=== PATIENT | female | born 1990 | race Caucasian/White ===

== ENCOUNTER → 2024-03-18 11:36 | Outpatient (CLI) | payer OTHER, SELFPAY ==
[2024-03-18 13:35] LABS: Urine Chlamydia NOT DETECTED; Urine N gonorrhoeae NOT DETECTED
== END ==
PROVIDERS: Visit Provider Obstetrics & Gynecology
DX: Z34.01 Encounter for supervision of normal first pregnancy, first trimester (principal); Z3A.09 9 weeks gestation of pregnancy
CPT/HCPCS: 87491; 87591

== ENCOUNTER → 2024-05-18 15:32 | Outpatient (CLI) | payer OTHER, SELFPAY ==
[2024-05-18 16:56] LABS: Add Manual Diff / Slide Review NO; Basophils Absolute Auto 0 /uL (0-100); Basophils Percent Auto 0.2 % (0-2); Eosinophils Absolute Auto 0 /uL (0-450); Eosinophils Percent Auto 0.4 % (2-4); Hematocrit 36.7 % (36-46); Hemoglobin 12.8 g/dL (12.0-16.0); Lymphocytes Absolute Auto 1400 /uL (1100-4500); Mean Corpuscular HGB Conc 34.9 % (30-36); Mean Corpuscular Hemoglobin 32.9 PG (26-34); Mean Corpuscular Volume 94.2 fL (80-100); Monocytes Absolute Auto 700 /uL (0-900); Monocytes Percent Auto 6.9 % (3-14); Neutrophils Absolute Auto 8400 /uL (1500-7000); Neutrophils Percent Auto 79.5 % (50-75); Platelet Count 235 X10^3/uL (150-400); Red Cell Distribution Width 13.5 % (11.6-14.8); White Blood Cell Count 10.5 X10^3/uL (4.5-11.0)
[2024-05-18 18:08] LABS: HIV 1 & 2 Ab/Ag 4th Gen Combo NEGATIVE (NEGATIVE); Hep C Virus Ab w/Reflex Quant NEGATIVE s/c (NEGATIVE); Hepatitis B Surface Antigen NEGATIVE s/c (NEGATIVE); Rubella Antibody IgG 5.2 IU/mL (>15)
[2024-05-19 08:10] LABS: RPR Screen Non Reactive (Non Reactive)
[2024-05-19 09:12] LABS: Varicella IgG Antibody 399 index (Immune >165)
== END ==
PROVIDERS: Obstetrics & Gynecology; Referring Provider Specialist; Visit Provider Specialist
DX: Z34.02 Encounter for supervision of normal first pregnancy, second trimester (principal); Z3A.18 18 weeks gestation of pregnancy
CPT/HCPCS: 36415; 80055; 82105; 82677; 84702; 86336; 86787; 86803; 86850; 86900; 86901; 87389

== ENCOUNTER → 2024-06-02 10:21 | Outpatient (CLI) | payer OTHER, SELFPAY ==
--- NOTE | 2024-06-02 10:22 | DI.US.S_ITS ---
PROCEDURE: US OB >= 14 WEEKS FETUS INDICATIONS: 20 Week Anatomy Scan OUTSIDE/PRIOR DATING DATA: Last menstrual period (LMP): 01/12/2024. LMP-based estimated date of delivery (FORREST): 10/18/2024. First dating scan (date and location): 03/18/2024. Estimated date of delivery (FORREST) from first dating scan: 10/20/2024. The calculations are made using the working FORREST of 10/18/2024. TECHNIQUE: Real-time scanning was performed of the fetus, with image documentation and biometric measurements. Endovaginal scanning: No COMPARISON: None. FINDINGS: General: A single living intrauterine gestation is present. Presentation: Breech. Placenta: Placental position is posterior , without previa. Amniotic fluid index: 13.0 cm, normal range is 5-24 cm. Single deepest vertical pocket is 3.8 cm. heart rate: 144 beats per minute. Maternal cervical canal: 3.6 cm long. Normal lower limit is 2.5 cm. biometrics: Biparietal diameter: 4.9 cm, 20 week 6 day Head circumference: 18.5 cm, 20 week 6 day Abdominal circumference: 15.6 cm, 20 week 5 day Femur length: 3.1 cm, 21 week 3 day Clinically estimated gestational age: 20 week 2 day Composite gestational age from present scan: 20 week 3 day Estimated weight and percentile: 342 g, 43 percentile Anatomic survey: Neuro: Ventricles are non-dilated at less than 10 mm. Cisterna magna is normal at 3-11 mm. Cerebellum is normal in size and morphology. Nuchal skin fold: Normal at less than 6 mm between 14-21 weeks gestational age. Face: Facial profile not well seen Spine: No evidence for spina bifida. Heart: 4-chambered heart is noted. Right ventricular outflow track not well seen. Left ventricular outflow track within normal limits.. Diaphragm: Diaphragm is intact. Stomach: Left-sided stomach is present. Kidneys: No hydronephrosis. Normal is less than 5 mm in 2nd trimester, less than 7 mm in 3rd trimester. Cord: 3-vessel cord has orthotopic insertion. Bladder: Normal in size. Extremities: All 4 extremities identified. IMPRESSION: Single live intrauterine consistent with a 20 week 2 day gestation. Facial profile and right ventricular outflow track not well seen. Attention on follow-up. Approved by: Antony Watson M.D. on 06/02/2024 at 18:18
== END ==
LOC: US 10:21
PROVIDERS: Referring Provider Obstetrics & Gynecology; Visit Provider Obstetrics & Gynecology
DX: Z34.82 Encounter for supervision of other normal pregnancy, second trimester (principal); Z3A.20 20 weeks gestation of pregnancy
CPT/HCPCS: 76811

== ENCOUNTER → 2024-06-10 15:26 | Outpatient (CLI) | payer OTHER, SELFPAY ==
--- NOTE | 2024-06-10 15:30 | DI.US.S_ITS ---
PROCEDURE: US OB FOLLOW UP INDICATIONS: Follow up anatomy scan OUTSIDE/PRIOR DATING DATA: Last menstrual period (LMP): 01/12/24. LMP-based estimated date of delivery (FORREST): 10/18/24. First dating scan (date and location): 03/18/24. Estimated date of delivery (FORREST) from first dating scan: 10/20/24. The calculations are made using the clinical FORREST of 10/18/24. TECHNIQUE: Real-time scanning was performed of the fetus, with image documentation. Endovaginal scanning: Not performed COMPARISON: None. FINDINGS: A single living intrauterine gestation is present. Presentation: Breech. Placenta: Placental position is posterior, without previa. Amniotic fluid index: 17.3 cm, normal range is 5-24 cm. Single deepest vertical pocket is 5.0 cm. heart rate: 143 beats per minute. Maternal cervical canal: Closed and 4.1 cm long. Normal lower limit is 2.5 cm. Clinically estimated gestational age: 21 weeks three days Images of the right cardiac ventricular outflow tract and profile are seen and appear normal. IMPRESSION: Completion of anatomic survey with visualization the facial profile and right cardiac ventricular outflow tract. Dictated by: Senait Medellin M.D. on 06/11/2024 at 18:24 Approved by: Senait Medellin M.D. on 06/11/2024 at 18:28
== END ==
PROVIDERS: Referring Provider Obstetrics & Gynecology; Visit Provider Obstetrics & Gynecology
DX: Z36.2 Encounter for other antenatal screening follow-up (principal); Z3A.21 21 weeks gestation of pregnancy
CPT/HCPCS: 76816

== ENCOUNTER → 2024-07-13 14:48 | Outpatient (CLI) | payer OTHER, SELFPAY ==
[2024-07-13 16:53] LABS: Hematocrit 35.7 % (36-46); Hemoglobin 12.6 g/dL (12.0-16.0)
[2024-07-13 17:46] LABS: GTT (PREG) 1 Hour PP 50gm Dose 192 mg/dL (76-139)
== END ==
PROVIDERS: Referring Provider Obstetrics & Gynecology; Visit Provider Obstetrics & Gynecology
DX: Z34.02 Encounter for supervision of normal first pregnancy, second trimester (principal); Z3A.26 26 weeks gestation of pregnancy
CPT/HCPCS: 36415; 82950; 85014; 85018

== ENCOUNTER → 2024-07-16 09:58 | Outpatient (CLI) | payer OTHER, SELFPAY ==
--- NOTE | 2024-07-16 16:58 | DIAB.GDA ---
Initial Gestational Diabetes Assessment Name: Zoey Person Date: 07/16/24 Time: 10-1030a Dx: abnormal glucose in Provider: Pablo FORREST: 10/18/24 Weeks: 26 Zoey presents for initial visit with spouse, Kevyn. Recent one hour glucose screen indicated a 192mg/dl elevated result. No OGTT. Started SMBG yesterday. Has been craving sweets lately. Denies personal or FH of DM. Diet Recall: 9a: 1-2 toast with almond butter and 1/2c berries 1p: leftovers or chipotle 3p: cottage cheese OR beef stick OR cheese 6p: salads OR half Ramen with 1/3 chx sandwich sn: nothing or ice cream or cookie 80oz water sometimes kombucha Anthropometrics: Ht: 65 Wt: 190# 07/13/24 at OB Prepregnancy wt: 180# Physical Activity: 30 min walk on less active days. Otherwise, no program. Self-Monitoring Blood Glucose: Checking FBG and 2 hour. All in goal, even with higher CHO intake. Will continue to monitor. Date Pre Post Pre Post Pre Post HS 07/15 88 88 86 98 07/16 80 Diabetes Medications: None Pertinent Labs: Screen 192mg/dl Nutrition Rx: Carbohydrates Meal: 45-60g lunch and dinner; 30g breakfast Snack: 15-30g Nutrition Diagnosis: Altered nutrition related lab value r/t abnormal glucose aeb Screen of 192mg/dl Nutrition and food related knowledge deficit r/t no previous MNT and new dx abnormal glucose aeb pt report Intervention: This participant was very receptive. Provided appropriate educational handouts. Discussed the following topics: insulin resistance in pathophysiology and impact of hyperglycemia on mom and baby Plate Method, meal timing, carb counting, pairing macronutrients and spreading out CHO for better BG management Blood glucose goals (FBG: <95 and 2 hour <120 mg/dL); importance of checking 4x per day (FBG and pc) Impact of macronutrients on blood glucose Recommended servings for carbohydrates at meals and snacks Goals: Continue blood sugar checks 4x per day Pair CHO and protein at meals. Follow-up: JOSE ROBERTO MICHAUD follow-up in two weeks, message BG in 1 week Madison Francois RDN, JASWANT Certified Diabetes Care and Nurse First Assist T: [phone] F: [phone] [email or web address] Thank you for this referral
== END ==
PROVIDERS: Referring Provider Obstetrics & Gynecology
DX: O26.892 Other specified pregnancy related conditions, second trimester (principal); R73.09 Other abnormal glucose; Z3A.26 26 weeks gestation of pregnancy
CPT/HCPCS: 97802

== ENCOUNTER → 2024-07-29 16:01 | Outpatient (CLI) | payer OTHER, SELFPAY ==
--- NOTE | 2024-07-29 16:06 | DIAB.GDFU ---
Addendum entered by Madison Francois 08/14/24 14:24: Diagnosis is not Gestational Diabetes at the time of this note. Dx: abnormal glucose in is correct. Original Note: Follow-up Gestational Diabetes Assessment Name: Zoey Person Date: 07/29/24 Time: 4-420 Dx: Gestational Diabetes Dx: abnormal glucose in Provider: Pablo FORREST: 10/18/24 Weeks: 28 Zoey presents for visit virtually using [facility] portal. Back from [place] last night, gone for 8 days. Higher carb intake than usual on trip, but BG still remained mostly in goal. Was having tacos every day with meat and cheese, usually 2-3 corn tortilla tacos. 137mg/dl elevation r/t high CHO intake while on vacation, ie 2 pancakes, 6oz OJ, plum x 1.5, sausage Recent Diet Recall (not on vacation): 9a: 1-2 toast with almond butter and 1/2c berries 1p: leftovers or crackers, cheese, green tea 3p: cottage cheese OR beef stick OR cheese 6p: salads OR butternut squash pasta sn: nothing or ice cream or cookie 80oz water sometimes kombucha Sees OB Saturday Anthropometrics: Ht: 65 Wt: 190# 07/13/24 at OB Prepregnancy wt: 180# Physical Activity: 30 min walk on less active days. Otherwise, no program. Self-Monitoring Blood Glucose: Checking FBG and 2 hour. Most in goal, even with higher CHO intake. Will continue to monitor. Date Pre Post Pre Post Pre Post Notes 07/23 94 96 95 07/24 83 110 101 90 07/25 80 137 129 96 07/26 95 82 115 112 07/27 88 85 114 104 07/28 85 109 103 104 07/29 89 121 Diabetes Medications: None Pertinent Labs: Screen 192mg/dl Nutrition Rx: Carbohydrates Meal: 45-60g lunch and dinner; 30g breakfast Snack: 15-30g Nutrition Diagnosis: Altered nutrition related lab value r/t abnormal glucose aeb Screen of 192mg/dl Nutrition and food related knowledge deficit r/t no previous MNT and new dx abnormal glucose aeb pt report- improved Intervention: This participant was very receptive. Provided appropriate educational handouts. Discussed the following topics: Review of pairing CHO and protein Encouraged safe physical activity Recommended servings for carbohydrates at meals and snacks Goals: Continue blood sugar checks 4x per day- met Pair CHO and protein at meals. - met Continue current regimen- cont Follow-up: JOSE ROBERTO MICHAUD follow-up in two weeks. Will schedule one more visit. Based on visit with OB, may not need to continue our MNT visits. Will continue to evaluate. Madison Francois RDN, [facility] Certified Diabetes Care and Chinese Medicine Practitioner T: [phone] F: [phone] [email or web address] Thank you for this referral
== END ==
PROVIDERS: Referring Provider Obstetrics & Gynecology
DX: O99.810 Abnormal glucose complicating pregnancy (principal); Z3A.28 28 weeks gestation of pregnancy; Z71.3 Dietary counseling and surveillance
CPT/HCPCS: 97803

== ENCOUNTER → 2024-08-13 14:03 | Outpatient (CLI) | payer OTHER, SELFPAY ==
--- NOTE | 2024-08-14 14:09 | DIAB.GDFU ---
Follow-up Gestational Diabetes Assessment Name: Zoey Person Date: 08/13/24 Time: 2-230p Dx: abnormal glucose in Provider: Pablo FORREST: 10/18/24 Weeks: 30 Zoey presents for visit virtually using [facility] portal. OB advised BID checks: FBG and one other pc since most were in range at that time. Notices some elevations in FBG and pc this week, so went back to 4x per day checks. Highest pc 136mg/dl at 2 hours. She thinks maybe with road trip to [place] the week before BG may have been higher with less phys activity and changes in hydration regimen. Diet Recall: B: egg salad sandwich OR mccann, chicken, with ?-1/2 c rice L: egg salad sandwich Sn: pork bun D: chicken skewers, 2x ? slice yam, ? of rice ball, edamame Sn: strawberry milk x 6oz Water: 80oz Anthropometrics: Ht: 65 Wt: 192# 07/31 at OB 190# 07/13/24 Prepregnancy wt: 180# Physical Activity: Increased activity with vacation lately. Currently walking daily, 23329 steps per day. Thinks walking may have helped bring BG down. Self-Monitoring Blood Glucose: 3 elevated FBG while on the road. Endorsed reduced activity and potentially hydration at that time. Has increased activity while on trip, and attributes reduced FBG to this. Reports pc elevations from higher carb meals, ie Ramen Date Pre Post Pre Post Pre Post 08/07 104 10/ 102 131 81 94 10/ 96 91 136 101 / 79 109 97 08/11 80 107 89 130 08/12 83 100 106 08/13 84 Diabetes Medications: None Pertinent Labs: Screen 192mg/dl Nutrition Rx: Carbohydrates Meal: 45-60g lunch and dinner; 30g breakfast Snack: 15-30g Nutrition Diagnosis: Altered nutrition related lab value r/t abnormal glucose aeb Screen of 192mg/dl Nutrition and food related knowledge deficit r/t no previous MNT and new dx abnormal glucose aeb pt report- improved Physical activity changes r/t travelling aeb pt report and fluctuations in FBG- new Intervention: This participant was very receptive. Provided appropriate educational handouts. Discussed the following topics: Hydration recommendations during Physical activity progress and impact on BG Factors that impact FBG most: sleep, meds, hormones, HS snack, movement BG review and recs Goals: Try to stay active- new Keep up with hydration while travelling- new Send BG in one week- new Follow-up: JOSE ROBERTO MICHAUD follow-up in one week via messaging with BG and two weeks 1:1 and OB visit in two weeks. Madison Francois RDN, [facility] Certified Diabetes Care and Creative Services Specialist T: [phone] F: [phone] [email or web address] Thank you for this referral
== END ==
PROVIDERS: Referring Provider Obstetrics & Gynecology
DX: O99.810 Abnormal glucose complicating pregnancy (principal); Z3A.30 30 weeks gestation of pregnancy; Z71.3 Dietary counseling and surveillance
CPT/HCPCS: 97803

== ENCOUNTER → 2024-08-28 08:09 | Outpatient (CLI) | payer OTHER, SELFPAY ==
--- NOTE | 2024-08-28 08:12 | DIAB.GDFU ---
Follow-up Gestational Diabetes Assessment Name: Zoey Person Date: 08/28/24 Time: 810-830 Dx: abnormal glucose in Provider: Pablo FORREST: 10/18/24 Weeks: 33 Zoey presents for visit with spouse. Would like to continue checking 4 x per day. Encouraged her to continue this as she feels comfortable, given some FBG elevations prior to her recent trip. After 35 weeks, if BG continue in goal, could consider OB rec of 2x per day checks. Has questions today about BG variations despite same food choices. Interested in seeing before . Food journal for meals: B: sausage, eggs, banana OR banana and granola bar OR croissant and pb with banana L:leftovers OR cheeseburger OR mccann and chicken with salad D: protein, veggies OR PB with croissant OR sandwich with crackers Anthropometrics: Ht: 65 Wt: 192# 07/31 at OB 190# 07/13/24 Prepregnancy wt: 180# Physical Activity: Was very active on their trip. Plans to continue walking daily. Self-Monitoring Blood Glucose: FBG continue to be in goal. A few elevated pc readings after high CHO intake. Date Pre Post Pre Post Pre Post notes 08/21 78 75 105 08/22 81 122 132 baby shower day 08/23 80 95 101 99 08/24 82 99 73 106 08/25 80 86 101 114 08/26 83 79 100 110 08/27 89 100 89 124 D: sandwich with crackers Diabetes Medications: None Pertinent Labs: Screen 192mg/dl Nutrition Rx: Carbohydrates Meal: 45-60g lunch and dinner; 30g breakfast Snack: 15-30g Nutrition Diagnosis: Altered nutrition related lab value r/t abnormal glucose aeb Screen of 192mg/dl Physical activity changes r/t travelling aeb pt report and fluctuations in FBG- improved Intervention: This participant was very receptive. Provided appropriate educational handouts. Discussed the following topics: Recent blood sugar results and factors that impact variability in BG results Review of macronutrient recommendations during Benefits, resources, and nutrition for recommendations for nutrition and physical activity recommendations for T2DM risk reduction OGTT at 6-12 weeks Checking blood sugars twice per week (goal: fasting <100 mg/dL and 2 hour pc <140 mg/dL) until 6 week check-up HgA1c q 1-3 years. Goals: Try to stay active- continue Keep up with hydration while travelling- met Send BG in one week- met Incorporate more veggies- new Check 4x per day for 2 weeks- new Walk daily x 30 mins- new Follow-up: JOSE ROBERTO MICHAUD follow-up in two weeks or sooner prn. Scheduled for US today. Madison Francois RDN, JASWANT Certified Diabetes Care and Socially Responsible Investment Adviser T: [phone] F: [phone] [email or web address] Thank you for this referral
== END ==
LOC: DIET 08:09
DX: O99.810 Abnormal glucose complicating pregnancy (principal); Z3A.33 33 weeks gestation of pregnancy; Z71.3 Dietary counseling and surveillance
CPT/HCPCS: 97803

== ENCOUNTER → 2024-09-24 09:24 | Outpatient (CLI) | payer OTHER, SELFPAY ==
[2024-09-25 10:39] LABS: Strep Grp B PCR NEG for Grp B Strep
== END ==
PROVIDERS: Visit Provider Obstetrics & Gynecology
DX: Z36.85 Encounter for antenatal screening for Streptococcus B (principal)
CPT/HCPCS: 87653

== ENCOUNTER 2024-10-21 03:40 | Inpatient (IN) | payer OTHER, SELFPAY ==
[2024-10-21 05:33] VITALS: BP 129/86
[2024-10-21 05:39] LABS: Add Manual Diff / Slide Review NO; Basophils Absolute Auto 0 /uL (0-100); Basophils Percent Auto 0.2 % (0-2); Eosinophils Absolute Auto 0 /uL (0-450); Hematocrit 39.1 % (36-46); Hemoglobin 13.7 g/dL (12.0-16.0); Lymphocytes Absolute Auto 1100 /uL (1100-4500); Lymphocytes Percent Auto 6.5 % (25-40); Mean Corpuscular Hemoglobin 32.5 PG (26-34); Mean Corpuscular Volume 92.7 fL (80-100); Monocytes Absolute Auto 600 /uL (0-900); Monocytes Percent Auto 3.7 % (3-14); Neutrophils Absolute Auto 15600 /uL (1500-7000); Neutrophils Percent Auto 89.6 % (50-75); Platelet Count 238 X10^3/uL (150-400); Red Blood Cell Count 4.21 X10^6/uL (4.0-5.2); Red Cell Distribution Width 13.8 % (11.6-14.8); White Blood Cell Count 17.4 X10^3/uL (4.5-11.0)
--- NOTE | 2024-10-21 08:28 | P.HPOB_ITS ---
OB HPI Date/Time Date of admission: 10/21/24 Date Patient Seen: 10/21/24 Time Patient Seen: 08:28 History of Present Condition Chief complaint: Labor FORREST Calculator 2 Estimated Delivery Date Method Current WG Current Estimate 10/18/24 LMP (Certain) 42w 1d Other Estimates 10/20/24 Ultrasound #1 41w 6d Estimated Gestational Age (weeks): 40+3 : 1 Para: 0 care: good care, initiated at week # (9), number of visits (12) and pounds weight gain (14) Dating criteria OB: LMP confirmed by 1st trimester US Ultrasounds: normal 1st trimester US and normal mid trimester US Obstetrical complications: other (abnormal 1 hr GTT, did not do 3 hr GTT. Checking BS's instead) Medical complications OB: none Preadmission Labs Last OB Lab Results: 2 Blood Type AB Positive 10/21/24 04:55 Antibody Screen Negative 10/21/24 04:55 Hct 35.6 % (36-46) L 10/22/24 06:33 Hgb 12.4 g/dL (12.0-16.0) 10/22/24 06:33 Hep Bs Antigen Negative s/c (NEGATIVE) 05/18/24 15:49 Hepatitis C Antibody Negative s/c (NEGATIVE) 05/18/24 15:49 Rubella Antibody 5.2 IU/mL (>15) L 05/18/24 15:49 VZV IgG Antibody 399 index (Immune >165) 05/18/24 15:49 Glucose 1 Hr 50 gm 192 mg/dL (76-139) H 07/13/24 15:03 Group B Strep (PCR) Neg for grp b strep 09/24/24 09:24 -: Chlamydia screen: negative, Gonorrhea screen: negative and Urine: negative -: PAP smear: Normal Genetic Screens: Quad screen: Normal External Labs -: Urine: negative Prior (ies) Hx # Term Pregnancies: 0 Hx # Pregnancies: 0 Number of Living Children: 0 Multiple births: 0 Spontaneous abortions: 0 Ectopic pregnancies: 0 Elective abortions: 0 Evaluation Evaluation Baseline heart rate: 135 Variability: Moderate (11-25) monitor accelerations: Present Monitor Decelerations: Absent Contraction Frequency (minutes): 4 Uterine Contraction Intensity: Strong/Firm Status: Category l Dilation (cm): 8 Effacement (%): 90 station: -1 Consistency: soft Comments: Bulging bag of water PFSH Surgical History (Updated 03/04/24 @ 14:04 by Mel Ospina, RN) Crucible teeth extracted Family History (Updated 03/04/24 @ 14:27 by Mel Ospina, RN) Mother Hypertension Degenerative disc disease Father Hyperlipidemia Prostate cancer Brother Brain cancer Grandmother Brain cancer Grandmother Breast cancer Aunt Developmental disability Uncle Developmental disability Social History marital status: number of children: 0 household members: spouse and other lives independently: Yes caregiver/support person: No housing: other pets and animals: Yes (cats, managing litter box) education level: master's degree occupational status: employed current occupational exposures/hazards: No special hal needs: No travel history: recent seatbelt use: always helmet use: Yes water heater temp set < 120 deg: Yes working smoke detector in home: Yes fire extinguisher in home: Yes carbon monox detector in home: Yes firearms in home: Yes firearms unloaded and locked: Yes do you feel safe at home: Yes Smoking Status: Never smoker second hand exposure: No alcohol intake: former substance use type: does not use during the past year weight has: increased > 10 lbs well-balanced diet: daily or most days daily servings fruits/ve-4 caffeine: Yes (aware of 200mg limit) Type(s) of exercise: walking and swimming frequency: daily duration: 30-45 minutes/day Meds Home Medications and Allergies Home Medications Medication Instructions Recorded Confirmed Type cholecalciferol (vitamin D3) 10 10 mcg PO DAILY 03/04/24 10/21/24 History mcg (400 unit) capsule omega-3 fatty acids 500 mg capsule 500 mg PO DAILY 03/04/24 10/21/24 History vitamin-ferrous sulfate See Rx Instructions .Route .COMPLEX 03/04/24 10/21/24 History 27 mg iron-folic acid 0.8 mg tablet blood sugar diagnostic (Blood #120 ea 07/14/24 10/21/24 Rx Glucose Test strips) blood-glucose meter (Blood Glucose #1 ea 07/14/24 10/21/24 Rx Monitoring kit) lancets #120 ea 07/14/24 10/21/24 Rx Allergies Allergy/AdvReac Type Severity Reaction Status Date / Time No Known Drug Allergies Allergy Verified 10/21/24 05:41 OB Exam Narrative Exam Narrative: Generally: Patient working hard through contractions Lungs: Clear to auscultation bilaterally Cardiovascular: Regular rate and rhythm Fundal height: 40 cm EFW: 7 1/2 pounds Ext: Trace edema Objective Labs 10/22/24 06:33 Labs: Laboratory Results - last 24 hr 10/21/24 04:55 WBC 17.4 H RBC 4.21 Hgb 13.7 Hct 39.1 MCV 92.7 MCH 32.5 MCHC 35.0 RDW 13.8 Plt Count 238 Neut % (Auto) 89.6 H Lymph % (Auto) 6.5 L [place] % (Auto) 3.7 Eos % (Auto) 0.0 L Baso % (Auto) 0.2 Neut # (Auto) 04141 H Lymph # (Auto) 1100 [place] # (Auto) 600 Eos # (Auto) 0 Baso # (Auto) 0 Blood Type AB Positive Antibody Screen Negative Assessment and Plan Assessment and Plan Assessment and Plan narrative: Assessment: 34-year-old 1 para 0 at 40+ 3 weeks' gestation GBS negative Active labor Plan: Expected management to spontaneous vaginal delivery Time-Based Coding :: [TOTAL MINUTES] spent with patient and on the chart (including review of chart, obtaining history, exam, reviewing outside data, placing orders, documenting exam and treatment plan, and counseling patient) on [DATE].
[2024-10-21] MEDS: LIDOCAINE 1% 20 ML INJ (11:41)
--- NOTE | 2024-10-21 13:15 | PM.OBPRVD ---
Events: Meconium Stained Fluid Labor & Delivery Delivery date: 10/21/24 Delivery Time: :29 Intrapartal Events: None Cervical ripening method: none Induction method: none Delivery monitor: external FHT and external uterine Route of delivery: Episiotomy description: None L&D Laceration Description: Perineal - 1st Degree and Vaginal - 1st Degree Delivery repair: vicryl and chromic Quantitative Blood Loss: 207 Anesthesia Type: Local (for repair only) and Other (Nitrous oxide) Complications: None Narrative: Patient complete and pushed for 33 minutes. At 11:28 a.m., a live male infant delivered spontaneously over an intact perineum. No nuchal cord. The remainder of the body delivered without difficulty and was placed on mom's abdomen. The cord was double clamped and cut once it stopped pulsing. Cord bloods were obtained. The placenta delivered intact with a three-vessel cord at 11:39 a.m.. The fundus was massaged to firm. 10 cc of 1% lidocaine were used for local analgesia for repair. A first-degree perineal/vaginal laceration were repaired with 2-0 Vicryl, 2-0 chromic in the usual fashion. Hemostasis was achieved. Apgars 8 at 1 minute and 9 at 5 minutes. weight 7 lb 6.1 oz. thin meconium-stained amniotic fluid. Nitrous oxide. . Mom and infant stable to recovery. Baby 1: gender: Male Presentation: vertex Position: Right Occiput Anterior Placenta delivery description: Spontaneous Cord Vessel Description: 3 Vessels score (1 min): 8 score (5 min): 9 weight: 7 lb 6.1 oz Plan for aftercare: Routine care
[2024-10-21] MEDS: IBUPROFEN 600 MG TABLET PO ×2 (13:50→19:56)
[2024-10-21] MEDS: DERMOPLAST SPRAY 20% 60 ML 1 SPRAY TOP (13:50)
[2024-10-21] MEDS: WITCH HAZEL/GLYCERIN PADS 1 EACH TOP (13:50)
[2024-10-21] MEDS: LANOLIN OINT 7 GM 1 APPLIC TOP (13:50)
[2024-10-22 06:46] LABS: Hematocrit 35.6 % (36-46); Hemoglobin 12.4 g/dL (12.0-16.0)
[2024-10-22 15:10] VITALS: BP 129/86; PULSE 101; RESP 16; TEMP 36.6
--- NOTE | 2024-11-02 06:19 | PM.OBDS.1 ---
Discharge Providers Provider Date of admission: 10/21/24 03:40 Discharge Date: 10/22/24 Primary care physician: Doctor Mana MD Consults: 10/21/24 04:48 Consult to Anesthesiology Urgent Comment: Consulting Provider: Anesthesiologist Reason for consultation: Epidural 10/22/24 13:13 Consult to Oil Field Equipment Mechanic Supervisor Routine Comment: Discharge provider: Jacqueline Shah MD Summary Hospital Course Date Patient Seen: 10/22/24 Time Patient Seen: 07:45 Diagnoses: 40+ 3 weeks' gestation Thin meconium-stained amniotic fluid Spontaneous vaginal delivery First-degree perineal/vaginal laceration Hospital Course: Patient is a 34-year-old 1 para 1 who presented on October 21, 2024 in active labor at 5:00 a.m.. She progressed to complete dilation and had a spontaneous vaginal delivery at 11:28 a.m.. There was thin meconium-stained amniotic fluid. Her course was unremarkable and she was discharged home on October 22, 2024. was going well. Bleeding was tapering. Peripartum Data Delivery Method: Natural Vaginal Laceration Description: Perineal - 1st Degree and Vaginal - 1st Degree Episiotomy description: None Procedures: Spontaneous vaginal delivery First-degree vaginal/perineal laceration repair complications: none 1: Gender: Male Disposition of : home Status at Discharge Cognitive/behavioral status at discharge: oriented Functional status at discharge: independent ambulation Overall status at discharge: patient is progressing back to baseline Time Spent with Patient Time attestation: Total time spent providing and/or coordinating discharge services: Time spent: Less than 30 minutes Objective Labs 10/22/24 06:33 Exam Narrative Exam Narrative: Generally: Patient is sitting up in bed, holding infant, no acute distress Fundus: Firm at U -1 Extremities: Trace edema, negative Homans Discharge Plan Discharge Plan Patient Disposition: Home Provider Discharge Comment: Call with fever, chills, or bleeding vaginally more than a pad in an hour Ibuprofen 600 mg every 6 hours as needed for cramping Tylenol 650 mg every 6 hours as needed for pain Continue vitamins Push oral fluids Discharge orders & Medications Prescriptions: Continued (DME) blood-glucose meter [Blood Glucose Monitoring] Kit See Rx Instructions .ROUTE .MEDSUPPLY Qty: 1 0RF Rx Instructions: Testing blood surgar 4x daily Fasting and 2 hours after each meal (DME) Blood Glucose Test Strip See Rx Instructions .ROUTE .MEDSUPPLY Qty: 120 3RF Rx Instructions: Testing blood sugars fasting and 2 hr PP (DME) lancets Misc See Rx Instructions .ROUTE .MEDSUPPLY Qty: 120 3RF Rx Instructions: Testing blood sugars fasting and 2 hr PP vit-ferrous sulfat-FA 27 mg iron- 0.8 mg tablet See Rx Instructions .ROUTE .COMPLEX Rx Instructions: Take as directed omega-3 fatty acids 500 mg capsule 500 mg PO DAILY cholecalciferol (vitamin D3) 10 mcg (400 unit) capsule 10 mcg PO DAILY Follow up/Referrals: Jacqueline Shah MD [Physician] - (Follow-up with Dr. Shah for a 6 week visit in early December) Diet/Activity/Treatments Diet: Regular Activity: Nothing in the vagina for 6 weeks Skin/Wound/Dressing Care Report to your healthcare provider any signs of infection, such as:: chills, fever, increased pain and unusual drainage Visit Report/Discharge Packet Instructions: DI for Labor and Delivery, Vaginal Stand Alone Forms: Discharge: Care, Patient Portal/API, Stroke Signs & Symptoms Discharge Data Primary Care Provider: Miscellaneous,Doctor
== END 2024-10-22 14:44 | disposition home or self-care (01) | DRG 807 ==
PROVIDERS: Obstetrics & Gynecology; Admitting Provider Student in an Organized Health Care Education/Training Program; Referring Provider Student in an Organized Health Care Education/Training Program; Visit Provider Student in an Organized Health Care Education/Training Program
DX: O48.0 Post-term pregnancy (principal); Z37.0 Single live birth; Z3A.41 41 weeks gestation of pregnancy; O70.0 First degree perineal laceration during delivery
CPT/HCPCS: 36415; 59050; 59400; 85014; 85018; 85025; 86850; 86900; 86901; G0379

== ENCOUNTER → 2025-02-11 11:25 | Outpatient (CLI) | payer OTHER, SELFPAY ==
[2025-02-11 12:54] LABS: Glucose Fasting 88 mg/dL (70-100)
[2025-02-11 14:08] LABS: Glucose Tol Interpretation INTERPRETATION
[2025-02-11 15:28] LABS: Glucose 1 Hour 193 mg/dL (70-170)
[2025-02-11 15:31] LABS: Glucose 2 Hour 122 mg/dL (70-140)
== END ==
PROVIDERS: Referring Provider Obstetrics & Gynecology; Visit Provider Obstetrics & Gynecology
DX: O24.419 Gestational diabetes mellitus in pregnancy, unspecified control (principal)
CPT/HCPCS: 36415; 82951; 82952